=== PATIENT | female | born 1945 | race Two or more races ===

== ENCOUNTER → 2021-01-20 | Emergency (ER) | payer OTHER ==
[~2021-01-20] VITALS: Ht 165.1 cm; Wt 70.8 kg
[~2021-01-20] MED LIST: ATACAND4 MG; GLIPIZIDE ER10 MG
== END | disposition home or self-care (01) ==
LOC: ER 20:41
DX: M54.2 Cervicalgia (principal); R51.9 Headache, unspecified; M54.59 Other low back pain

== ENCOUNTER 2021-01-22 11:32 | Emergency (ER) | payer OTHER ==
[~2021-01-22] VITALS: Ht 165.1 cm; Wt 70.3 kg
== END 2021-01-22 17:15 | disposition left against medical advice (07) ==
LOC: ER 11:32
DX: G44.89 Other headache syndrome (principal); M54.2 Cervicalgia

== ENCOUNTER 2023-09-21 10:19 | Outpatient (CLI) | payer OTHER ==
[~2023-09-21 10:19] MED LIST changes: +DICLOFENAC SODI50 MG PO; +TYLENOL ARTHRI650 MG PO
== END 2023-09-21 10:32 | disposition home or self-care (01) ==
LOC: TOM 10:19
PROVIDERS: ATTEND Internal Medicine
DX: E11.9 Type 2 diabetes mellitus without complications (principal); E11.51 Type 2 diabetes mellitus with diabetic peripheral angiopathy without gangrene; I10 Essential (primary) hypertension; E55.9 Vitamin D deficiency, unspecified; E11.65 Type 2 diabetes mellitus with hyperglycemia; Z79.84 Long term (current) use of oral hypoglycemic drugs; Z79.4 Long term (current) use of insulin; M06.9 Rheumatoid arthritis, unspecified; N60.11 Diffuse cystic mastopathy of right breast; N60.12 Diffuse cystic mastopathy of left breast; Z13.820 Encounter for screening for osteoporosis; Z12.31 Encounter for screening mammogram for malignant neoplasm of breast